=== PATIENT | female | born 1995 ===

== ENCOUNTER 2018-12-09 21:43 | Emergency (ER) | payer OTHER ==
[2018-12-09 21:58] VITALS: O2SAT 100
--- NOTE | 2018-12-09 22:18 | RAD ---
Date of service: 12/09/2018 PROCEDURE: Radiographs of soft tissues of the neck INDICATION: Evaluate for foreign body COMPARISON: None. TECHNIQUE: Two views were obtained. FINDINGS: AP and lateral views of the neck was obtained utilizing soft tissue technique. The prevertebral soft tissues are not widened. The soft tissues are unremarkable including the epiglottis, aryepiglottic folds and subglottic airway. There is no radiopaque foreign body. The visualized bones are unremarkable. IMPRESSION: Normal examination. No radiopaque foreign body.
--- NOTE | 2018-12-10 00:27 | C.PDOC ---
History Of Present Illness 23 year old female presents with foreign body sensation in throat after eating fish at 8pm. Patient believes she may have swallowed a fishbone, states she can feels it when she sticks her finger down her throat. She does not recall what type of fish she ate. Describes it as a 6/10 discomfort. Patient not noted to be drooling or in respiratory distress at this time. Denies fever, chills, nausea, vomiting, abdominal pain, or neck stiffness. Chief Complaint (Nursing): ENT Problem History Per: Patient History/Exam Limitations: None Onset/Duration Of Symptoms: Hrs Current Symptoms Are (Timing): Still Present Quality (Mouth/Throat): Other (Foreign body sensation) Past Medical History Reviewed: Historical Data, Nursing Documentation, Vital Signs Vital Signs: Last Vital Signs Temp 99.6 F 12/09/18 21:56 Pulse 100 H 12/09/18 21:56 Resp 18 12/09/18 21:56 BP 134/84 12/09/18 21:56 Pulse Ox 100 12/09/18 21:56 Family History: States: Unknown Family Hx - Social History Hx Alcohol Use: No Hx Substance Use: No Review Of Systems Constitutional: Negative for: Fever, Chills ENT: Positive for: Other (Foreign body sensation in throat) Gastrointestinal: Negative for: Nausea, Vomiting, Abdominal Pain Musculoskeletal: Negative for: Other (Neck stiffness) Physical Exam - Physical Exam Appears: Non-toxic Skin: Normal Color, Warm Head: Atraumatic, Normacephalic Eye(s): bilateral: Normal Inspection Oral Mucosa: Moist Throat: Normal, No Erythema, No Exudate, No Drooling, No Other (Foreign body) Neck: Normal, Supple Chest: Symmetrical, No Tenderness Cardiovascular: Rhythm Regular Respiratory: Normal Breath Sounds, No Rales, No Rhonchi, No Wheezing Neurological/Psych: Oriented x3, Normal Speech ED Course And Treatment O2 Sat by Pulse Oximetry: 100 (room air) Pulse Ox Interpretation: Normal - Other Rad Neck soft tissue x-ray X-Ray: Interpreted by Me, Viewed By Me Interpretation: No foreign body visualized - CT Scan/US CT neck soft tissue Other Rad Studies (CT/US): Read By Radiologist, Radiology Report Reviewed CT/US Interpretation: EXAM: CT Neck without Intravenous Contrast. CLINICAL HISTORY: SWALLLOWE FISH BONE TONIGHT STLN XRAYS FOR COMPARISON BB ON REGION OF SENSATION. TECHNIQUE: Axial computed tomography images of the neck without intravenous contrast. Sagittal and coronal reformatted images were generated. 0.00 mGy-cm. CONTRAST: Without. COMPARISON: None provided. FINDINGS: PHARYNX: Unremarkable appearance of the nasopharynx, oropharyx, and hypopharynx. No pharyngeal mucosal based mass lesions. There is no identification of a radiopaque foreign body. LARYNX: Normal appearance of the larynx. Unremarkable epiglottis. RETROPHARYNGEAL SPACE: No retropharyngeal soft tissue swelling or gas. SALIVARY GLANDS: Unremarkable appearance of the parotid, submandibular, and sublingual glands. LYMPH NODES: No significant lymphadenopathy. THYROID: The thyroid gland is unremarkable. No nodule is evident. BONES: No acute osseous abnormality. No aggressive appearing osseous lesion. IMPRESSION: 1. No identification of a radiopaque foreign body. 2. Otherwise, unremarkable CT neck with IV contrast. Medical Decision Making Medical Decision Making: X-ray and CT results were negative. Discussed with Dr. Zazueta, ENT art sales consultant, who recommended antibiotics and motrin for pain. Patient is adamant that there is a bone lodged in her throat, advised it would be best for her to be evaluated by ENT. Explained to patient that CT scan will be reviewed by our in house radiologist and she will be notified if there are any changes. Patient verbalizes understanding and is in agreement with plan. Patient is stable for discharge. Disposition Discussed With : Arsh Zauzeta Counseled Patient/Family Regarding: Diagnosis, Need For Followup, Rx Given - Disposition Referrals: Arsh Zazueta MD [Staff Provider] - Disposition: HOME/ ROUTINE Disposition Time: 00:20 Condition: STABLE Additional Instructions: CT scan did not show any foreign body in the throat but will contact you if there are any changes once reviewed Start Zpac as directed Start Motrin as needed for pain Follow up with Dr. 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 - Scribe Statement The provider has reviewed the documentation as recorded by the Scribe Ludwig Ford All medical record entries made by the Alek were at my direction and personally dictated by me. I have reviewed the chart and agree that the record accurately reflects my personal performance of the history, physical exam, medical decision making, and the department course for this patient. I have also personally directed, reviewed, and agree with the discharge instructions and disposition.
[2018-12-10 00:40] VITALS: BP 127/84; PULSE 89; RESP 16; TEMP 99
--- NOTE | 2018-12-10 08:59 | CT ---
Date of service: 12/09/2018 PROCEDURE: CT NECK WITHOUT CONTRAST HISTORY: r/o foreign body (fish bone) COMPARISON: Plain radiographs performed earlier the same day. TECHNIQUE: CT of the neck without intravenous contrast. Coronal and sagittal reformats generated. Radiation dose: Total exam DLP = 442.07 mGy-cm. This CT exam was performed using one or more of the following dose reduction techniques: Automated exposure control, adjustment of the mA and/or kV according to patient size, and/or use of iterative reconstruction technique. FINDINGS: NASOPHARYNX: Unremarkable. SUPRAHYOID NECK: Unremarkable oropharynx, oral cavity, parapharyngeal space and retropharyngeal space. INFRAHYOID NECK: Unremarkable larynx, hypopharynx, and supraglottic space. Vocal cords intact. MASS: None. GLANDS: Parotid and submandibular glands unremarkable. Normal size thyroid gland, without nodule. LYMPH NODES: Normal. No lymphadenopathy. CERVICAL SPINE: No fracture or focal lesion. OTHER FINDINGS: No evidence of retropharyngeal soft tissue swelling or gas. IMPRESSION: No acute findings. No evidence for radiopaque foreign body. A preliminary report was provided by [facility].
== END 2018-12-10 00:39 | disposition home or self-care (01) ==
LOC: C.ER 21:43
DX: R09.89 Other specified symptoms and signs involving the circulatory and respiratory systems (principal)

== ENCOUNTER 2018-12-10 13:58 | Emergency (ER) | payer SELFPAY ==
--- NOTE | 2018-12-10 14:55 | C.PDOC ---
History Of Present Illness 23 year old female sent to ED by Dr. Zazueta. She was seen in this ED last night for foreign body sensation in her throat after eating fish. CT scan of neck was done and neg for FBs. However patient continued to have discomfort. She denies SOB, chest pain, nausea/vomiting. Time Seen by Provider: 12/10/18 14:11 Chief Complaint (Nursing): ENT Problem History Per: Patient History/Exam Limitations: None Onset/Duration Of Symptoms: Days Current Symptoms Are (Timing): Still Present Symptoms Have Been: Continuous Severity: Moderate Past Medical History Reviewed: Historical Data, Nursing Documentation, Vital Signs Vital Signs: Last Vital Signs Temp 99.4 F 12/10/18 14:12 Pulse 99 H 12/10/18 14:12 Resp 16 12/10/18 14:12 BP 139/80 12/10/18 14:12 Pulse Ox 100 12/10/18 14:12 - Medical History PMH: No Chronic Diseases Family History: States: No Known Family Hx - Social History Hx Alcohol Use: No Hx Substance Use: No - Immunization History Hx Tetanus Toxoid Vaccination: No Hx Influenza Vaccination: No Hx Pneumococcal Vaccination: No Review Of Systems Except As Marked, All Systems Reviewed And Found Negative. Constitutional: Negative for: Fever ENT: Positive for: Throat Pain (FB sensation right side ) Cardiovascular: Negative for: Chest Pain Respiratory: Negative for: Cough, Shortness of Breath Gastrointestinal: Negative for: Nausea, Vomiting Physical Exam - Physical Exam Appears: Well, Non-toxic, No Acute Distress, Other (speaking in full sentences) Skin: Normal Color, Warm, Dry, No Rash Head: Normacephalic Eye(s): bilateral: Normal Inspection Oral Mucosa: Moist Lips: Normal Appearing Teeth: Normal Dentition Throat: No Erythema, No Exudate, No Drooling, Other ((+) directly above right tonsil there is a small white spot - ? foreign body. (-) Uvula midline and normal in appearance ) Neck: Normal ROM, Trachea Midline, Supple Cardiovascular: Rhythm Regular Respiratory: Normal Breath Sounds, No Rales, No Rhonchi, No Stridor, No Wheezing Neurological/Psych: Oriented x3 ED Course And Treatment O2 Sat by Pulse Oximetry: 100 (RA) Pulse Ox Interpretation: Normal Progress Note: Patient seen by Dr. Zazueta in the ED, he successfully removed fish bone that was above right tonsil. Patient instructed to follow up with PMD in 1-2 days, and she understands she should return to ED if symptoms return/worsen. Medical Decision Making Medical Decision Making: Progress/Update: Dr. Zazueta evaluated pt at bedside and removed the fish bone. Pt stable for discharge home. Prescribed Motrin. Disposition Counseled Patient/Family Regarding: Diagnosis, Need For Followup - Disposition Referrals: Arsh Zazueta MD [Staff Provider] - [facility] [Outside] Disposition: HOME/ ROUTINE Disposition Time: 14:55 Condition: STABLE Instructions: Removal of Foreign Body, Swallowed, Adult Forms: [employer] (C[place] Rican) - Clinical Impression Clinical Impression: Foreign body in throat - Scribe Statement The provider has reviewed the documentation as recorded by the Scribe (Lesly Nichols) Provider Attestation: All medical record entries made by the Scribe were at my direction and personally dictated by me. I have reviewed the chart and agree that the record accurately reflects my personal performance of the history, physical exam, medical decision making, and the department course for this patient. I have also personally directed, reviewed, and agree with the discharge instructions and disposition.
[2018-12-10 15:08] VITALS: BP 121/81; PULSE 83; RESP 20; TEMP 98.9
[2018-12-10 15:23] VITALS: O2SAT 100
--- NOTE | 2018-12-10 23:55 | OP ---
PROCEDURE DATE: 12/10/2018 PROCEDURE: Removal of foreign body in the throat. SECONDARY FINDINGS: The patient had a foreign body in the right tonsil. DESCRIPTION OF PROCEDURE: The patient was brought into the room, placed in a supine position. The mouth was opened. The oral cavity was examined under direct examination. Foreign body was noted in the right tonsil. A tonsil clamp was used to grab the foreign body and remove it. The patient tolerated the procedure well. Arsh Zazueta MD
== END 2018-12-10 15:08 | disposition home or self-care (01) ==
LOC: C.ER 13:58
DX: T17.228A Food in pharynx causing other injury, initial encounter (principal); X58.XXXA Exposure to other specified factors, initial encounter